=== PATIENT | male | born 2000 | race Caucasian/White ===

== ENCOUNTER 2023-09-26 15:57 | Emergency (ER) | payer OTHER, SELFPAY ==
[2023-09-26 16:09] VITALS: BP 132/76
[2023-09-26 16:23] LABS: % Basophils 0.4 % (0-2); % Eosinophils 1.5 % (0-6); % Immature Granulocytes 0.3 % (0-0.5); % Lymphocytes 30.3 % (20.5-51.1); % Monocytes 7.7 % (1.7-9.3); % Neutrophils 59.8 % (42.2-75.2); Absolute Eosinophils 0.1 10^3/uL (0-0.7); Absolute Lymphocytes 2.9 10^3/uL (1.2-3.4); Absolute Monocytes 0.7 10^3/uL (0.1-0.6); Absolute Neutrophils 5.7 10^3/uL (1.4-6.5); Hematocrit 42.7 % (39.0-52.0); Hemoglobin 15.1 g/dL (13.0-18.0); Mean Corp Hgb Conc. 35.4 g/dL (33.0-37.0); Mean Platelet Volume 10.3 fL (7.4-10.4); Nucleated Red Blood Cells % 0 % (-); Platelet Count 301 10^3/uL (130-400); Red Blood Cell Count 5.21 10^6/uL (4.70-6.10); Red Cell Dist. Width 12.7 % (11.5-14.5); White Blood Cell Count 9.6 10^3/uL (4.8-10.8)
[2023-09-26 16:40] LABS: ALT (SGPT) 77 U/L (0-50); AST (SGOT) 35 U/L (17-59); Albumin 4.9 g/dl (3.5-5.0); Alkaline Phosphatase 90 U/L (38-126); Blood Urea Nitrogen 16 mg/dl (9-20); Calcium 10.4 mg/dl (8.4-10.2); Carbon Dioxide 28 mmol/L (22-30); Chloride 104 mmol/L (98-107); Glucose 91 mg/dl (70-99); Potassium 4.7 mmol/L (3.5-5.1); Sodium 139 mmol/L (135-145); Total Bilirubin 0.5 mg/dl (0.2-1.3); Total Protein 7.7 g/dl (6.3-8.2); eGFR > 60.00
[2023-09-26 17:24] VITALS: BMI 18.3
--- NOTE | 2023-09-26 17:35 | ED.GENMED ---
History of Present Illness
General
Chief Complaint: Dental Problem
Source: patient
Exam Limitations: none
Time Seen by Provider: 09/26/23 16:37
Nursing documentation reviewed up to this point in time: agreed with
History of Present Illness
History of Present Illness:
23 yr old male presents to the ER for evaluation. Patient reports he had a cracked tooth and his dentist put him on amoxicillin for 8 days. He completed that on Tuesday but developed a rash and stopped taking it. On Tuesday he also noticed a lump
to the posterior neck because he was concerned he called his dentist that he recommended he come to the ER. He denies any recent fever chills runny nose cough. He does not feel ill he denies any facial swelling. He is seeing an oral surgeon for
evaluation to have tooth extracted.
Past History
Past History
ED Past Medical History: None
ED Past Surgical History: None
Social History
Tobacco: Non-smoker
Alcohol: None
Drug: None
Review of Systems
Review of Systems
Allergies reviewed?: Yes
Other source history: family
All Other Systems: ROS reviewed and negative except as documented in HPI and ROS
Constitutional: Reports no symptoms; Denies fever, fatigue or chills
EENT: Reports other (Lump to posterior right neck; cracked right upper posterior tooth )
Respiratory: Reports no symptoms; Denies cough or trouble breathing
Cardiac: Reports no symptoms
ABD/GI: Reports no symptoms
Musculoskeletal: Reports no symptoms
Skin: Reports no symptoms
Neurological: Reports no symptoms
Psychiatric: Reports no symptoms
Phy Exam
General Physical Exam
General Presentation: no apparent distress
General age: appears stated age
General Skin: warm and dry
General Habitus: normal
General Mental: alert
General Hydration: appears well hydrated
ENT Exam
ENT Exam: EOMI, neck supple and other (No trismus; no facial swelling, right upper posterior tooth is cracked and there is no gum fluctuance + palpable lymph node right posterior cervical region)
Cardiovascular Exam
Cardiovascular Exam: regular rate/rhythm, no murmur and normal peripheral pulses
Pulmonary Exam
Pulmonary Exam: lungs clear and no respiratory distress
Neurological Exam
Neurological Exam: alert and oriented x3
Musculoskeletal Exam
Musculoskeletal Exam: full ROM
Skin Exam
Skin Exam: normal color and warm/dry
Psychiatric Exam
Psychiatric Exam: normal mood/affect
Course
Orders/Labs/Results
Orders:
Orders
09/26/23 16:16
CMP [Comprehensive Metabolic Panel] Urgent
Complete Blood Count/With Diff Urgent
09/26/23 17:56
Diphenhydramine [Benadryl] 50 mg PO NOW STA
Abnormal Lab Results
09/26/23
16:16
Absolute Monos (auto) 0.7 H 10^3/uL
(0.1-0.6)
Calcium 10.4 H mg/dl
(8.4-10.2)
ALT 77 H U/L
(0-50)
09/26/23 16:16
09/26/23 16:16
Vital Signs
Initial and Last Documented VS:
Initial Vital Signs
Temp Pulse Resp BP Pulse Ox
98.9 F 60 20 132/76 97
09/26/23 16:09 09/26/23 16:09 09/26/23 16:09 09/26/23 16:09 09/26/23 16:09
Last Documented Vital Signs
Temp Pulse Resp BP Pulse Ox
98.9 F 60 20 132/76 97
09/26/23 16:09 09/26/23 16:09 09/26/23 16:09 09/26/23 16:09 09/26/23 16:09
Roof Tile Layer consulted with Physician
Roof Tile Layer consulted with physician?: Yes
Name of Physician Consulted: Nico
MDM/Problems Addressed
Differential Diagnosis Includes:
not limited to: reactive lymph node from recent allergic reaction verus dental infection
MDM/Problems Addressed:
Patient has an obvious palpable right posterior cervical lymph node however patient is in no acute distress afebrile no recent fever chills. He Does have a cracked upper right tooth but there is no gum swelling or fluctuance no facial swelling.
He did have a reaction while taking amoxicillin several days ago and this is when lump did occur. This is likely viral versus reactive lymph node. patient looks well . He is not afebrile nontoxic no meningismus normal labs. Case discussed ED
physician will DC home with close outpatient follow-up family doctor. Because there is no obvious infection here presently and tooth looks well with no gum swelling or fluctuance will have patient hold off on any additional antibiotics. He
already completed 8 days of amoxicillin prior to allergic reaction.
*Critical Care Note
Total Time (30-74mins, 75-104mins- exclusive of procedures): Not Applicable
ED Attending Note
-
Portions of this chart may have been created with voice recognition software.� Occasional wrong word or��sound alike� substitutions may have occurred due to the inherent limitations of voice recognition software.
Discharge Plan
Departure
Patient Disposition: Home (Routine Discharge)
Date of Disposition: 09/26/23
Time of Disposition: 17:57
Patient with high blood pressure during this ER visit?: No
Condition: Fair
Covid-19: Not Applicable
Discharge Problem:
Allergic reaction, Lymphadenopathy
Instructions: Allergic Reaction ED
Prescriptions:
No Action
multivitamin [One Daily Multivitamin] 1 EACH tablet
1 ea PO DAILY
hydrocodone-acetaminophen 1 TABLET tablet
1 - 2 tab PO Q4HPRN PRN (Reason: moderate to severe pain) Qty: 10 0RF
Referrals:
Maurciio Mustafa I., DO [Family Provider] -
Stand Alone Forms: Return to Work
Activity Restrictions/Additional Instructions:
As discussed you may take Benadryl every 4-6 hours or you may take Claritin or Zyrtec
Follow-up with your family doctor in the next several days to ensure that all symptoms and lymph nodes are resolving. If lymph nodes continue then you may require imaging of the area. Return if any worsening of symptoms of difficulty breathing
fever chills.
Interventions
Interventions:
*Risk Screen - Suicide Last Done: 09/26/23 16:28
*General Assessment Last Done: 09/26/23 16:28
*Neglect/Abuse Screening Last Done: 09/26/23 16:28
*ED COVID-19 Vaccine History Last Done: 09/26/23 16:28
Discharge Date and Time
Print Language: MOHAWK
[2023-09-26] MEDS: BENADRYL 50 MG PO (18:04)
== END 2023-09-26 18:07 | disposition home or self-care (01) ==
LOC: EMR 15:57
PROVIDERS: Emergency Medicine; EMERGENCY PHYSICIAN Student in an Organized Health Care Education/Training Program; FAMILY PHYSICIAN Internal Medicine
DX: R21 Rash and other nonspecific skin eruption (principal); T36.0X5A Adverse effect of penicillins, initial encounter; R59.1 Generalized enlarged lymph nodes; Y92.9 Unspecified place or not applicable; K03.81 Cracked tooth
CPT/HCPCS: 99283; 80053; 85025

== ENCOUNTER 2024-12-15 18:48 | Emergency (ER) | payer OTHER, SELFPAY ==
[2024-12-15 18:54] VITALS: BP 124/85
[2024-12-15] MEDS: TOBREX 0.3% EYE DROPS 1 DROP OPHTH (21:49)
--- NOTE | 2024-12-15 23:37 | ED.SKININJ ---
HPI-Injury
General
Chief Complaint: Eye Problems
Source: patient
Exam Limitations: none
Time Seen by Provider: 12/15/24 21:15
Nursing documentation reviewed up to this point in time: agreed with
History of Present Illness-Injury
Is this injury a work related problem?: Yes
Is pt an associate of [facility]?: No
Initial Injury comments:
Patient to ED with complaint of foreign body left eye. States he believes a piece of cinder is in eye. Incident occurred this afternoon.
Past History
Past History
ED Past Medical History: None
ED Past Surgical History: None
Social History
Tobacco: Non-smoker
Alcohol: None
Drug: None
Review of Systems
Review of Systems
Allergies reviewed?: Yes
All Other Systems: ROS reviewed and negative except as documented in HPI and ROS
Constitutional: Reports no symptoms
EENT: Reports other (Foreign body sensation left eye)
Respiratory: Reports no symptoms
Cardiac: Reports no symptoms
ABD/GI: Reports no symptoms
: Reports no symptoms
Musculoskeletal: Reports no symptoms
Skin: Reports no symptoms
Neurological: Reports no symptoms
Psychiatric: Reports no symptoms
Phy Exam
General Physical Exam
General Presentation: well appearing and mild distress
General age: appears stated age
General Skin: warm and dry
General Habitus: normal
General Mental: alert
Eye Exam
Eye Exam: PERRL, conjunctiva normal and other (Lids everted. SMall black barb seen under left upper lid. REmoved with qtip)
Cornea Exam: abrasion: Left (Superficial horizontal abrasion 11-1 oclock)
Musculoskeletal Exam
Musculoskeletal Exam: full ROM
Skin Exam
Skin Exam: normal color, warm/dry and no rash
Psychiatric Exam
Psychiatric Exam: normal mood/affect
Course
Orders/Labs/Results
Orders:
Orders
12/15/24 21:31
Tetracaine HCl [Tetracaine 0.5% Ophthalmic Solution] 1 drop .ROUTE .STK-MED ONE
12/15/24 21:42
Tobramycin 0.3% [Tobrex 0.3% Eye Drops] See Dose Instructions OPHTH NOW STA
Vital Signs
Initial and Last Documented VS:
Initial Vital Signs
Temp Pulse Resp BP Pulse Ox
98.8 F 89 18 124/85 96
12/15/24 18:54 12/15/24 18:54 12/15/24 18:54 12/15/24 18:54 12/15/24 18:54
Last Documented Vital Signs
Temp Pulse Resp BP Pulse Ox
98.8 F 89 18 124/85 96
12/15/24 18:54 12/15/24 18:54 12/15/24 18:54 12/15/24 18:54 12/15/24 23:39
*Pulse Oximetry
SaO2: 96
Oxygen Mode of Delivery: Room air
Patient hypoxic: no
*Critical Care Note
Total Time (30-74mins, 75-104mins- exclusive of procedures): Not Applicable
Update Note
Update Note:
FB (black speck) removed from under left upper lid with qtip. No s/s infection. Corneal abrasion noted on slit lamp exam. ANtibiotic drops started in ED. He will be discharged home, follow up with ophthalmology.
ED Attending Note
-
Portions of this chart may have been created with voice recognition software.� Occasional wrong word or��sound alike� substitutions may have occurred due to the inherent limitations of voice recognition software.
Discharge Plan
Departure
Patient Disposition: Home (Routine Discharge)
Date of Disposition: 12/15/24
Time of Disposition: 21:43
Patient with high blood pressure during this ER visit?: No
Condition: Good
Covid-19: Not Applicable
Discharge Problem:
Acute foreign body of conjunctiva, Abrasion, corneal
Instructions: Corneal Abrasion (DC), How to Use Eye Drops, Foreign Body in Eye (DC)
Prescriptions:
No Action
multivitamin [One Daily Multivitamin] 1 EACH tablet
1 ea PO DAILY
hydrocodone-acetaminophen 1 TABLET tablet
1 - 2 tab PO Q4HPRN PRN (Reason: moderate to severe pain) Qty: 10 0RF
Referrals:
Mauricio Mustafa I., [Family Provider, Internal Medicine]
Carolyn Urbina MD [Active, Ophthalmology] - Call in 1-3 days for appt
Activity Restrictions/Additional Instructions:
Apply antibiotic drops, 1 drop to your left eye every 4 hours while awake.
Interventions
Interventions:
*Risk Screen - Suicide Last Done: 12/15/24 18:57
*Neglect/Abuse Screening Last Done: 12/15/24 18:57
*Nursing Disposition Last Done: 12/15/24 21:55
Discharge Date and Time
Discharge Date/Time: 12/15/24 21:55
Print Language: DOMINICAN
== END 2024-12-15 21:55 | disposition home or self-care (01) ==
LOC: EMR 18:48
PROVIDERS: EMERGENCY PHYSICIAN Emergency Medicine; FAMILY PHYSICIAN Internal Medicine
DX: T15.12XA Foreign body in conjunctival sac, left eye, initial encounter (principal); S05.02XA Injury of conjunctiva and corneal abrasion without foreign body, left eye, initial encounter; W44.8XXA Other foreign body entering into or through a natural orifice, initial encounter
CPT/HCPCS: 99283